=== PATIENT | female | born 1975 | race African-American/Black ===

== ENCOUNTER 2017-12-21 16:02 | Emergency (ER) | payer OTHER ==
[~2017-12-21] VITALS: Ht 162.6 cm; Wt 68.2 kg
[2017-12-21 16:12] VITALS: BP 149/102
[2017-12-21] MEDS ORDERED: KEFLEX500 MG PO (18:23)
== END 2017-12-21 18:48 | disposition home or self-care (01) ==
LOC: EME 16:02
PROC: 3E0234Z Introduction of Serum, Toxoid and Vaccine into Muscle, Percutaneous Approach (ICD-10-PCS; principal; 2017-12-21)
DX: S61.032A Puncture wound without foreign body of left thumb without damage to nail, initial encounter (principal); W26.8XXA Contact with other sharp object(s), not elsewhere classified, initial encounter; R11.0 Nausea; Z23 Encounter for immunization; Z88.2 Allergy status to sulfonamides; F17.200 Nicotine dependence, unspecified, uncomplicated
CPT/HCPCS: 99281; 99283